=== PATIENT | female | born 1980 | race Caucasian/White ===

== ENCOUNTER → 2022-12-04 11:10 | Outpatient (CLI) | payer OTHER, MEDICAID, SELFPAY ==
[2022-12-04 11:56] LABS: COVID-19 CEPHEID 4-PLEX PCR Negative (Negative); Influenza A - CEPHEID Flu A NEGATIVE (NEGATIVE); Influenza B - CEPHEID Flu B NEGATIVE (NEGATIVE); Respiratory Syncytial Virus Negative (Negative)
== END ==
PROVIDERS: Visit Provider Nurse Practitioner Family
DX: J02.9 Acute pharyngitis, unspecified (principal); R05.1 Acute cough; Z20.822 Contact with and (suspected) exposure to COVID-19
CPT/HCPCS: 0241U; 87070; 87077; C9803